=== PATIENT | female | born 1935 | race Caucasian/White ===

== ENCOUNTER 2016-11-25 08:17 | Emergency (ER) | payer MEDICARE, OTHER ==
--- NOTE | 2016-11-25 08:54 | ERPHSYRPT ---
- History of Present Illness Time Seen by Provider: 11/25/16 08:51 Source: patient Exam Limitations: no limitations Patient Subjective Stated Complaint: elevated b/p Triage Nursing Assessment: ambulated to room per self. skin w/d, color normal, resp easy. states posterior neck hurts. Physician History: 83-year-old female came to the emergency room with complaining of elevated blood pressure. Patient was recently diagnosed with hypertension and was started on medication recently. Patient does not know the name of the medication. Patient states that she was just seen 3 days ago by physician. Patient states that her blood pressure was found to be 150/94, so she came to the emergency room. She is complaining of bilateral shoulder pain but denies any substernal chest pain, nausea, vomiting or diaphoresis. Timing/Duration: today Associated Symptoms: denies symptoms Allergies/Adverse Reactions: celecoxib Allergy (Verified 11/25/16 08:35) levofloxacin [From Levaquin] Adverse Reaction (Verified 11/25/16 08:35) Home Medications: Hydrochlorothiazide 25 mg PO DAILY 07/21/14 [History] Levothyroxine Sodium [Synthroid] 75 mcg PO DAILY 07/21/14 [History] Omeprazole [Prilosec] 40 mg PO DAILY 07/21/14 [History] Simvastatin [Zocor] 20 mg PO QHS 07/21/14 [History] Antiox#10/Om3/Dha/Epa/Lut/Zeax [I-Caps with Lutein-[place] 3 Sfg] 1 each PO DAILY 11/25/16 [History] Ergocalciferol (Vitamin D2) [Vitamin D] 50,000 unit PO WEEKLY 11/25/16 [History] Magnesium Oxide [Magnesium] 400 mg PO DAILY 11/25/16 [History] Hx Tetanus, Diphtheria Vaccination/Date Given: No Hx Influenza Vaccination/Date Given: No Hx Pneumococcal Vaccination/Date Given: Yes (2015) Immunizations Up to Date: No - Review of Systems Constitutional: No Fever, No Chills Eyes: No Symptoms Ears, Nose, & Throat: No Symptoms Respiratory: No Cough, No Dyspnea Cardiac: No Chest Pain, No Edema, No Syncope Abdominal/Gastrointestinal: No Abdominal Pain, No Nausea, No Vomiting, No Diarrhea Genitourinary Symptoms: No Dysuria Musculoskeletal: No Back Pain, No Neck Pain Skin: No Rash Neurological: No Dizziness, No Focal Weakness, No Sensory Changes Psychological: No Symptoms Endocrine: No Symptoms All Other Systems: Reviewed and Negative - Past Medical History Pertinent Past Medical History: Yes Neurological History: No Pertinent History ENT History: Cataracts Cardiac History: High Cholesterol, Hypertension Respiratory History: No Pertinent History Endocrine Medical History: Hypothyroidism Musculoskeletal History: Arthritis GI Medical History: GERD History: No Pertinent History Psycho-Social History: No Pertinent History Female Reproductive Disorders: No Pertinent History - Past Surgical History Past Surgical History: Yes Neuro Surgical History: No Pertinent History Cardiac: No Pertinent History Respiratory: No Pertinent History Gastrointestinal: Cholecystectomy Genitourinary: No Pertinent History Musculoskeletal: No Pertinent History Female Surgical History: No Pertinent History - Social History Smoking Status: Never smoker Exposure to second hand smoke: No Drug Use: none Patient Lives Alone: Yes - Nursing Vital Signs Nursing Vital Signs: Initial Vital Signs Temperature 98.4 F Temperature Source Oral Pulse Rate 82 Respiratory Rate 18 Blood Pressure [Right Arm] 138/74 Blood Pressure [Right Arm] 148/94 Pain Intensity 4 - Physical Exam General Appearance: no apparent distress, alert Eye Exam: PERRL/EOMI, eyes nml inspection Ears, Nose, Throat Exam: normal ENT inspection, TMs normal, pharynx normal, moist mucous membranes Neck Exam: normal inspection, non-tender, supple, full range of motion Respiratory Exam: normal breath sounds, lungs clear, No respiratory distress Cardiovascular Exam: regular rate/rhythm, normal heart sounds, normal peripheral pulses Gastrointestinal/Abdomen Exam: soft, normal bowel sounds, No tenderness, No mass Back Exam: normal inspection, normal range of motion, No CVA tenderness, No vertebral tenderness Extremity Exam: normal inspection, normal range of motion, pelvis stable Neurologic Exam: alert, oriented x 3, cooperative, normal mood/affect, nml cerebellar function, nml station & gait, sensation nml, No motor deficits Skin Exam: normal color, warm, dry, No rash Lymphatic Exam: No adenopathy SpO2: 95 Oxygen Delivery: Room Air - Course Nursing assessment & vital signs reviewed: Yes Ordered Tests: Active Orders 24 hr Category Date Time Status EKG-ER Only STAT Care 11/25/16 08:50 Active CBC W DIFF Stat Lab 11/25/16 09:04 Completed CMP Stat Lab 11/25/16 09:04 Completed TROPONIN Stat Lab 11/25/16 09:04 Completed Lab/Rad Data: Laboratory Result Diagrams 11/25/16 09:04 11/25/16 09:04 Laboratory Results 11/25/16 11/25/16 11/25/16 Range/Units 09:04 09:04 09:04 WBC 4.5 (4.0-10.5) K/mm3 RBC 4.31 (4.1-5.4) M/mm3 Hgb 13.4 (12.0-16.0) gm/dl Hct 40.7 (35-47) % MCV 94.4 (78-100) fl MCH 31.1 (26-32) pg MCHC 32.9 (32-36) g/dl RDW 12.7 (11.5-14.0) % Plt Count 210 (150-450) K/mm3 MPV 11.5 H (6-9.5) fl Gran % 64.7 (36.0-66.0) % Lymphocytes % 23.3 L (24.0-44.0) % Monocytes % 8.7 (0.0-12.0) % Eosinophils % 2.9 (0.00-5.0) % Basophils % 0.4 (0.0-0.4) % Basophils # 0.02 (0-0.4) Sodium 145 (136-145) mEq/L Potassium 4.5 (3.5-5.1) mEq/L Chloride 106 (98-107) mEq/L Carbon Dioxide 30.3 (21-32) mEq/L Anion Gap 13.0 (5-15) MEQ/L BUN 20 (9-20) mg/dL Creatinine 1.03 (0.55-1.30) mg/dl Estimated GFR 55 ML/MIN Glucose 107 (70-110) MG/DL Calcium 9.6 (8.5-10.1) mg/dL Total Bilirubin 0.6 (0.2-1.0) mg/dL AST 19 (15-37) U/L ALT 22 (12-78) U/L Alkaline Phosphatase 50 (46-116) U/L Troponin I < 0.017 (0.000-0.056) ng/ml Serum Total Protein 7.6 (6.4-8.2) gm/dL Albumin 3.9 (3.4-5.0) g/dL - Progress Progress: improved Counseled pt/family regarding: lab results, diagnosis, need for follow-up - Departure Time of Disposition: 09:47 Departure Disposition: Home Clinical Impression: Hypertension Qualifiers: Hypertension type: essential hypertension Qualified Code(s): I10 - Essential ( primary) hypertension Condition: Good Critical Care Time: Yes Critical Care Time(excluding separately billable procedures): 30-74 minutes Referrals: JAIRO EDMONDSON MD [Primary Care Provider] - Instructions: Hypertension Additional Instructions: Please follow the instructions given to you. Please take your medication as prescribed if given. If symptoms recur or get worse, come back to the emergency room if you cannot reach your primary care physician, or call your primary care physician for an appointment. Again if your symptoms get worse, come back to the emergency room. Thanks for visiting emergency room, and let us take care of you. Prescriptions: Lisinopril 5 mg [Zestril 5 MG] 5 mg PO DAILY #30 tablet
[2016-11-25 09:12] LABS: BASOPHIL % 0.4 % (0.0-0.4); Eosinophil % 2.9 % (0.00-5.0); Granulocytes % 64.7 % (36.0-66.0); Lymphocytes % 23.3 % (24.0-44.0); Mean Cell Volume 94.4 fl (78-100); Mean Corpuscular Hemoglobin 31.1 pg (26-32); Mean Platelet Volume 11.5 fl (6-9.5); Monocytes % 8.7 % (0.0-12.0); Platelet Count 210 K/mm3 (150-450); Red Blood Count 4.31 M/mm3 (4.1-5.4); Red Cell Distribution Width 12.7 % (11.5-14.0); White Blood Count 4.5 K/mm3 (4.0-10.5)
[2016-11-25 09:30] LABS: ALBUMIN 3.9 g/dL (3.4-5.0); BILIRUBIN,TOTAL 0.6 mg/dL (0.2-1.0); Carbon Dioxide 30.3 mEq/L (21-32); Potassium 4.5 mEq/L (3.5-5.1); Total Protein 7.6 gm/dL (6.4-8.2)
[2016-11-25 10:06] VITALS: BP 132/68; PULSE 79; O2SAT 96
== END 2016-11-25 10:06 | disposition home or self-care (01) ==
LOC: ED 08:17
DX: I10 Essential (primary) hypertension (principal)
CPT/HCPCS: 36415; 80053; 84484; 85025; 93005; 99283

== ENCOUNTER 2018-10-15 11:32 | Observation (INO) | payer MEDICARE, OTHER ==
[2018-10-15] MEDS ORDERED: Sodium Chloride 0.9% 1000 ML 1,000 ML ONE (12:37)
[2018-10-15] MEDS ORDERED: Zofran 4 MG/2 ML VIAL IV PRN ×2 (13:07→19:04)
[2018-10-15] MEDS ORDERED: MORPHINE SULFATE 4 MG INJ IV PRN (13:07)
[2018-10-15] MEDS: Sodium Chloride 0.9% 1000 ML 1,000 ML IV SCH ×2 (13:11→19:33)
[2018-10-15] MEDS: Zosyn 3.375GM/100 Ml D5W 3.375 GM/100 ML IVPB IV SCH ×2 (13:13→19:39)
[2018-10-15] MEDS ORDERED: Lactated Ringers 1,000 ML IV SCH (15:30)
[2018-10-15] MEDS ORDERED: MEFOXIN 2 GM PREMIX** 2 GM/50 ML ML IV SCH (16:00)
--- NOTE | 2018-10-15 16:40 | PCM.HP ---
History of Present Illness - Chief Complaint Chief Complaint: Acute Appendicitis,Abd Pain,Diarrhea,pre op clearance History of Present Illness: is a 83 year old female who is well known to me who presented to the office on Saturday (2 days ago) with complaints of left lower abdominal pain that was intermittent and cramping in nature with associated diarrhea. She has been having some mild cramping and loose stools for the last few months but in the last week her symptoms were much more significant. she had an outpatient CT scan today that showed an enlarged appendix with no obvious stranding concerning for early appendicits. She has no cardiac history or history of significant pulmonary problems. - Review of Systems Constitutional: No Fever, No Chills Respiratory: No Cough, No Short Of Breath Cardiac: No Chest Pain, No Edema, No Syncope Abdominal/Gastrointestinal: Abdominal Pain, Diarrhea, No Nausea, No Vomiting, No Hematemesis, No Hematochezia Genitourinary Symptoms: No Symptoms Skin: No Symptoms, No Rash All Other Systems: Reviewed and Negative Medications & Allergies Home Medications: Home Medication List Levothyroxine Sodium [Synthroid] 75 mcg PO DAILY 07/21/14 [History Confirmed 10/21] Omeprazole [Prilosec] 40 mg PO DAILY 07/21/14 [History Confirmed 10/15/18] Simvastatin [Zocor] 20 mg PO QHS 07/21/14 [History Confirmed 10/15/18] hydroCHLOROthiazide [Hydrochlorothiazide] 25 mg PO DAILY 07/21/14 [History Confirmed 10/15/18] Antiox.mv No.10/Omeg3s/Lut/[place] [I-Caps with Lutein-[place] 3 Sfg] 1 each PO DAILY 11/25/16 [History Confirmed 10/15/18] Ergocalciferol (Vitamin D2) [Vitamin D] 50,000 unit PO WEEKLY 11/25/16 [History Confirmed 10/15/18] Lisinopril 5 mg [Zestril 5 MG] 5 mg PO DAILY #30 tablet 11/25/16 [Rx Confirmed 10/15/18] Allergies/Adverse Reactions: Allergies Allergy/AdvReac Type Severity Reaction Status Date / Time celecoxib Allergy Verified 10/15/18 12:50 vaccine adjuvant system, Allergy Verified 10/15/18 12:50 AS01B liposomal [From Shingrix (PF)] varicella-zoster virus Allergy Verified 10/15/18 12:50 glycoprotein E, recombinant [From Shingrix (PF)] levofloxacin [From Levaquin] AdvReac Verified 10/15/18 12:50 - Past Medical History Past Medical History: Yes Neurological History: No Pertinent History ENT History: Cataracts Cardiac History: High Cholesterol, Hypertension Respiratory History: No Pertinent History Endocrine Medical History: Hypothyroidism Musculoskelatal History: Arthritis GI Medical History: GERD History: No Pertinent History Pyscho-Social History: No Pertinent History Reproductive Disorders: No Pertinent History - Female History Are you now?: No - Past Surgical History Past Surgical History: Yes Neuro Surgical History: No Pertinent History Cardiac History: No Pertinent History Respiratory Surgery: No Pertinent History GI Surgical History: Cholecystectomy Genitourinary Surgical Hx: No Pertinent History Musculskeletal Surgical Hx: No Pertinent History Female Surgical History: No Pertinent History - Social History Smoking Status: Never smoker Exposure to second hand smoke: No Alcohol: None Drug Use: none - Physical Exam Vital Signs: Vital Signs - 24 hr Temp Pulse Resp BP Pulse Ox 10/15/18 13:53 98.6 F 77 16 134/55 95 10/15/18 12:39 98.6 F 77 16 134/55 95 General Appearance: no apparent distress, alert Eye Exam: PERRL/EOMI, eyes nml inspection Respiratory Exam: normal breath sounds, lungs clear, No respiratory distress Cardiovascular Exam: regular rate/rhythm, normal heart sounds, normal peripheral pulses Gastrointestinal/Abdomen Exam: soft, normal bowel sounds, No tenderness, No mass Extremity Exam: normal inspection, normal range of motion, pelvis stable Skin Exam: normal color, warm, dry, No rash Assessment/Plan (1) Acute appendicitis Current Visit: Yes Status: Acute Assessment & Plan: patient has been admitted, kept NPO and started on zosyn. would include neuroendocrine tumor in differential with enlarged appendix and symptoms of diarrhea and cramping pain etc. plan for surgery this evening with Dr Jones, she has an EKG with normal sinus rhythm rate 69 with no acute changes. she is fairly low risk for surgery and cleared for general anesthesia medically at this time. Code(s): K35.80 - UNSPECIFIED ACUTE APPENDICITIS (2) Diarrhea Current Visit: Yes Status: Acute Code(s): R19.7 - DIARRHEA, UNSPECIFIED (3) Abdominal pain Current Visit: Yes Status: Acute Code(s): R10.9 - UNSPECIFIED ABDOMINAL PAIN
[2018-10-15] MEDS ORDERED: Lactated Ringers 1,000 ML IV ONE (16:47)
[2018-10-15] MEDS ORDERED: Sensorcaine 0.25% 10 ML ONE (16:47)
[2018-10-15] MEDS ORDERED: DILAUDID 2 MG INJECTION ONE (18:17)
[2018-10-15] MEDS ORDERED: SUBLIMAZE 100 MCG/2 ML ONE (18:17)
[2018-10-15] MEDS ORDERED: NORCO 5/325 MG PO PRN (19:02)
[2018-10-15] MEDS: MORPHINE SULFATE 2 MG INJ IV PRN ×2 (19:24→23:19)
[2018-10-16 00:46] LABS: Appearance SLIGHTLY CLOUDY (CLEAR); Bilirubin NEGATIVE (NEGATIVE); Blood SMALL Ery/ul (0-5); Glucose NEGATIVE (NEGATIVE); Ketones NEGATIVE (NEGATIVE); Leukocyte Esterase SMALL (NEGATIVE); Nitrite NEGATIVE (NEGATIVE); Protein,Urine Dip NEGATIVE (Negative); Specific Gravity 1.009 (1.005-1.025); Urobilinogen NEGATIVE mg/dL (0-1)
[2018-10-16] MEDS: Zosyn 3.375GM/100 Ml D5W 3.375 GM/100 ML IVPB IV SCH ×3 (01:18→11:36)
[2018-10-16 05:38] LABS: Hematocrit 34.3 % (35-47); Hemoglobin 11.2 gm/dl (12.0-16.0); Mean Cell Volume 96.3 fl (78-100); Mean Corpuscular Hgb Concent. 32.7 g/dl (32-36); Mean Platelet Volume 11.5 fl (6-9.5); Platelet Count 154 K/mm3 (150-450); Red Blood Count 3.56 M/mm3 (4.1-5.4); Red Cell Distribution Width 12.5 % (11.5-14.0); White Blood Count 8.8 K/mm3 (4.0-10.5)
[2018-10-16 05:44] LABS: Mean Corpuscular Hemoglobin 31.4 pg (26-32)
[2018-10-16] MEDS: Sodium Chloride 0.9% 1000 ML 1,000 ML IV SCH (05:51)
--- NOTE | 2018-10-16 07:59 | CONS ---
CONSULT DATE: 10/15/2018 HISTORY: This 83 year-old female had some abdominal pain. She is a little bit better now. She came in. She had a distended appendix about 13 to 14 mm. There was concern whether she had early acute appendicitis. White blood cell count 4.5, hemoglobin 12.6. Liver function test unremarkable. Given her dilated appendix and wall thickening and concern of possible early appendicitis, I feel she would benefit from appendectomy. Otherwise she had on other acute findings. PAST SURGICAL HISTORY: Cholecystectomy in the past. She denied any prior abdominal surgery. She had colonoscopy three years ago. PAST MEDICAL HISTORY: MEDICATIONS: As listed per MAR. ALLERGIES: LEVAQUIN, CELEBREX, KEFLEX. FAMILY HISTORY: Negative in regards to this problem. SOCIAL HISTORY: No alcohol abuse. REVIEW OF SYSTEMS: Twelve systems reviewed. No chest pain or palpitations other systems negative or noncontributory as above and per preadmission questionnaire. PHYSICAL EXAMINATION: GENERAL: No acute distress. HEENT: Sclera nonicteric. NECK: No JVD. CHEST: Equal excursion, nonlabored breathing. CVS: Regular rate and rhythm. ABDOMEN: Soft. She had some minimal left upper quadrant tenderness. She had some mild deep right lower quadrant. No peritoneal signs. EXTREMITIES: No significant edema. NEURO: Alert, moving extremities grossly symmetrically. No gross motor deficits noted. IMPRESSION: She has some vague abdominal pain. CT showing abnormal appendix. I feel she warrants diagnostic laparoscopy, laparoscopic appendectomy possible open. Risks and benefits explained in detail but not limited to, consent obtained.
--- NOTE | 2018-10-16 08:07 | OP ---
CONSULT DATE: 10/15/2018 HISTORY: This 83 year-old female had some abdominal pain. She is a little bit better now. She came in. She had a distended appendix about 13 to 14 mm. There was concern whether she had early acute appendicitis. White blood cell count 4.5, hemoglobin 12.6. Liver function test unremarkable. Given her dilated appendix and wall thickening and concern of possible early appendicitis, I feel she would benefit from appendectomy. Otherwise she had on other acute findings. PAST SURGICAL HISTORY: Cholecystectomy in the past. She denied any prior abdominal surgery. She had colonoscopy three years ago. PAST MEDICAL HISTORY: MEDICATIONS: As listed per MAR. ALLERGIES: LEVAQUIN, CELEBREX, KEFLEX. FAMILY HISTORY: Negative in regards to this problem. SOCIAL HISTORY: No alcohol abuse. REVIEW OF SYSTEMS: Twelve systems reviewed. No chest pain or palpitations other systems negative or noncontributory as above and per preadmission questionnaire. PHYSICAL EXAMINATION: GENERAL: No acute distress. HEENT: Sclera nonicteric. NECK: No JVD. CHEST: Equal excursion, nonlabored breathing. CVS: Regular rate and rhythm. ABDOMEN: Soft. She had some minimal left upper quadrant tenderness. She had some mild deep right lower quadrant. No peritoneal signs. EXTREMITIES: No significant edema. NEURO: Alert, moving extremities grossly symmetrically. No gross motor deficits noted. IMPRESSION: She has some vague abdominal pain. CT showing abnormal appendix. I feel she warrants diagnostic laparoscopy, laparoscopic appendectomy possible open. Risks and benefits explained in detail but not limited to, consent obtained. Risks and benefits explained in detail including but not limited to bleeding or infection, risk of trocar injury or hernia, small risk of bowel, bladder or blood vessel injury, small risk of bile leak, fistula formation or abscess formation possibly requiring percutaneous or open drainage even at a later date. General risk of a anesthesia, deep venous thrombosis, pulmonary embolism, pneumonia, perioperative risk of aches, pains, bloating, constipation and/or loose stools possibly even chronic in nature, possibility of finding a normal appendix would be removed incidentally and look for other etiology that might need taken care of surgically, possible need for open procedure. She understands and agrees to the planned procedure, as well as perioperative risk of ileus or obstruction but not limited to, will proceed with laparoscopic appendectomy possible open when OR time available.
[2018-10-16] MEDS ORDERED: TYLENOL 325 MG PO PRN (08:25)
--- NOTE | 2018-10-16 08:26 | PCM.NOTE ---
Date and Time: 10/16/18823 Subjective Assessment: doing well at this time, tolerating po this morning. has ambulated in the [place]. has some mild pain Objective Exam General Appearance: no apparent distress, alert Skin Exam: normal color, warm, dry Respiratory Exam: normal breath sounds, lungs clear, No respiratory distress Cardiovascular Exam: regular rate/rhythm, normal heart sounds Gastrointestinal/Abdomen Exam: soft, normal bowel sounds, other (dressing clean , dry, intact) Extremity Exam: normal inspection, normal range of motion OBJECTIVE DATA Vital Signs: Vital Signs - 24 hr Temp Pulse Resp BP Pulse Ox 10/16/18 07:34 93 L 10/16/18 07:29 96 10/16/18 06:57 97.8 F 68 18 110/58 96 10/16/18 04:00 97.9 F 64 16 107/56 93 L 10/16/18 01:00 98.1 F 58 L 17 125/56 93 L 10/15/18 21:25 73 16 126/66 93 L 10/15/18 20:25 66 16 132/63 95 10/15/18 19:55 97.2 F 66 17 145/64 95 10/15/18 19:38 98 10/15/18 19:25 67 158/70 93 L 10/15/18 19:10 72 16 150/75 95 10/15/18 18:55 96.4 F 66 18 191/77 93 L 10/15/18 16:39 98.6 F 77 16 134/55 95 10/15/18 16:00 97.8 F 67 18 119/61 93 L 10/15/18 13:53 98.6 F 77 16 134/55 95 10/15/18 12:39 98.6 F 77 16 134/55 95 Oxygen-Last 24 hours O2 Percentage 2 Liters = 28% O2 Percentage 2 Liters = 28% O2 Percentage 2 Liters = 28% O2 Percentage 2 Liters = 28% O2 Percentage 2 Liters = 28% O2 Percentage 2 Liters = 28% O2 Percentage 2 Liters = 28% O2 Percentage 2 Liters = 28% O2 Percentage 2 Liters = 28% Pain Assessment - Last Documented Pain Intensity 6 Pain Scale Used 0-10 Pain Scale Intake and Output: Intake & Output 10/13/18 10/14/18 10/15/18 10/16/18 11:59 11:59 11:59 11:59 Intake Total 1425 Output Total 200 Balance 1225 Weight 76.4 kg Lab Results: Lab Results-Last 24 Hours 10/15/18 10/16/18 Range/Units 17:51 05:15 WBC 8.8 (4.0-10.5) K/mm3 RBC 3.56 L (4.1-5.4) M/mm3 Hgb 11.2 L (12.0-16.0) gm/dl Hct 34.3 L (35-47) % MCV 96.3 (78-100) fl MCH 31.4 (26-32) pg MCHC 32.7 (32-36) g/dl RDW 12.5 (11.5-14.0) % Plt Count 154 (150-450) K/mm3 MPV 11.5 H (6-9.5) fl Urine Color YELLOW (YELLOW) Urine Appearance SLIGHTLY CLOUDY (CLEAR) Urine pH 5.0 (5-6) Ur Specific [place] 1.009 (1.005-1.025) Urine Protein NEGATIVE (Negative) Urine Ketones NEGATIVE (NEGATIVE) Urine Blood SMALL (0-5) Biju/ul Urine Nitrite NEGATIVE (NEGATIVE) Urine Bilirubin NEGATIVE (NEGATIVE) Urine Urobilinogen NEGATIVE (0-1) mg/dL Ur Leukocyte Esterase SMALL (NEGATIVE) Urine WBC (Auto) 11-15 (0-5) /HPF Urine RBC (Auto) 3-5 (0-2) /HPF U Epithel Cells (Auto) RARE (FEW) /HPF Urine Bacteria (Auto) RARE (NEGATIVE) /HPF Urine Mucus (Auto) SLIGHT (NEGATIVE) /HPF Urine Glucose NEGATIVE (NEGATIVE) mg/dL Assessment/Plan (1) Acute appendicitis Current Visit: Yes Status: Acute Assessment & Plan: on zosyn, doing well postoperative. tolerating po and ambulating, home when ok with surgery Code(s): K35.80 - UNSPECIFIED ACUTE APPENDICITIS (2) Diarrhea Current Visit: Yes Status: Acute Code(s): R19.7 - DIARRHEA, UNSPECIFIED (3) Abdominal pain Current Visit: Yes Status: Acute Code(s): R10.9 - UNSPECIFIED ABDOMINAL PAIN
--- NOTE | 2018-10-16 08:27 | OP ---
SURGERY DATE/TIME: 10/15/2018 0206 PREOPERATIVE DIAGNOSES: 1) Abnormal appendix on CT scan with concern for acute appendicitis. 2) History of vague abdominal pain. POSTOPERATIVE DIAGNOSES: 1) Definitely abnormal thickened appendix with reaction at the base, final path pending. 2) Abdominal adhesions. PROCEDURES: 1) Diagnostic laparoscopy, laparoscopic lysis of right lower quadrant adhesions. 2) Laparoscopic appendectomy. SURGEON: Dr. Gurvinder Jones. COURIER: Nati Rdz, Medical Student III. ANESTHESIA: General. ESTIMATED BLOOD LOSS: Minimal. INDICATIONS: As noted above. Risks and benefits explained in detail but not limited to, consent obtained. DESCRIPTION OF PROCEDURE AND FINDINGS: The patient taken to the operating room. General anesthesia was induced. Abdomen prepped and draped in usual sterile fashion. After official time out and no disagreement with the planned procedure, a transverse incision made supraumbilical area. Fascia grasped and pulled upwards. Veress needle inserted and tested with saline. Pneumoperitoneum accomplished insufflating from opening pressure of 0 to 15. A 5 mm bladeless port and camera were inserted without difficulty followed by 12 mm right mid abdomen port. There was evidence of some omental adhesions sticking to the lower abdomen and right lower quadrant. It was necessary to take these down so the appendiceal area could be visualized, this was accomplished with a combination of some sharp dissection and LigaSure device. Again staying on these filmy adhesions directly on the abdominal wall well away from any viscera. Good hemostasis noted. Before I had access for better visualization of right lower quadrant, a 5 mm port was placed in lower midline. The appendix was definitely abnormal and it was thickened. It had reaction at its base. Whether this had been appendicitis in the past acute on chronic or whether there is some sort of small tumor, it was felt it definitely warranted appendectomy. It was carefully mobilized upwards. EndoGIA stapler fired across the base of the appendix to the cecum. Sequential reloads fired across the mesoappendix. There had been scant ooze at staple line controlled with pinpoint miniscule brief bursts of cautery. Good hemostasis was noted. The appendix placed in Pleatman sac and pulled out the 12 mm port and passed off. The port is replaced. Copious amount of irrigation accomplished in right lower quadrant. She had some ooze in the staple line earlier. It was felt that she was not a candidate for immediate Lovenox use secondary to bleeding risk but will continue on SCD's postoperatively for deep venous thrombosis prophylaxis, otherwise early ambulation and increase activity. Copious amount of irrigation accomplished in the right lower quadrant irrigating until clear. It was felt there was no benefit from drain placement. Staple line is intact. No current active bleeding or leakage from the staple line. Fascial defect 12 mm closed with puncture closure device with #1 Vicryl. Pneumoperitoneum decompressed. The wound is irrigated out. Skin incision closed with 4-0 Vicryl. Steri-Strips and sterile dressing applied. 0.25% Marcaine local injected along the skin incision fascial defects. The patient tolerated the procedure well. There were no immediate complications. Findings discussed with the family out in the waiting area. I will check a blood count tomorrow and possibly go home in a day or two.
[2018-10-16] MEDS ORDERED: hydroDIURIL 25 MG PO SCH (10:00)
[2018-10-16] MEDS ORDERED: Protonix 40MG Tablet PO SCH (10:00)
[2018-10-16] MEDS ORDERED: SYNTHROID 75 MCG PO SCH (10:00)
[2018-10-16] MEDS ORDERED: Zestril 5 MG PO SCH (10:00)
[2018-10-16] MEDS ORDERED: NON-FORMULARY ITEM (Omeprazole [Prilosec] 40 MG) PO SCH (10:00)
[2018-10-16 11:11] VITALS: BP 102/60; PULSE 59; O2SAT 95
--- NOTE | 2018-10-16 12:53 | PCM.DS ---
Discharge Summary Date of Admission: 10/15/18 12:14 Admitting Physician: JAIRO EDMONDSON Consults: Consults on Case 10/15/18 12:39 Consult Surgery ROUTINE Primary Care Provider: JAIRO EDMONDSON Allergies Allergies celecoxib Allergy (Verified 10/15/18 12:50) rash vaccine adjuvant system, AS01B liposomal [From Shingrix (PF)] Allergy (Verified 10/15/18 12:50) varicella-zoster virus glycoprotein E, recombinant [From Shingrix (PF)] Allergy (Verified 10/15/18 12:50) levofloxacin [From Levaquin] Adverse Reaction (Verified 10/15/18 12:50) sore joints rash Hospital Summary - Hospital Course Hospital Course: patient was admitted after having outpatient CT scan on 10/15 that showed acute appendicitis. she is doing well postoperatively, ambulatory, tolerating po intake and pain is controlled. - Vitals & Intake/Output Vital Signs: Vital Signs Temperature 97.6 F 10/16/18 11:10 Pulse Rate 59 L 10/16/18 11:10 Respiratory Rate 20 10/16/18 11:10 Blood Pressure 102/60 10/16/18 11:10 O2 Sat by Pulse Oximetry 95 10/16/18 11:10 Oxygen-Last Documented O2 Percentage 2 Liters = 28% Intake & Output: Intake & Output 10/14/18 10/15/18 10/16/18 10/17/18 11:59 11:59 11:59 11:59 Intake Total 1785 Output Total 400 Balance 1385 Weight 76.4 kg - Lab Result Diagrams: 10/16/18 05:15 Lab Results-Last 24 Hrs: Lab Results-Last 24 Hours 10/15/18 10/16/18 Range/Units 17:51 05:15 WBC 8.8 (4.0-10.5) K/mm3 RBC 3.56 L (4.1-5.4) M/mm3 Hgb 11.2 L (12.0-16.0) gm/dl Hct 34.3 L (35-47) % MCV 96.3 (78-100) fl MCH 31.4 (26-32) pg MCHC 32.7 (32-36) g/dl RDW 12.5 (11.5-14.0) % Plt Count 154 (150-450) K/mm3 MPV 11.5 H (6-9.5) fl Urine Color YELLOW (YELLOW) Urine Appearance SLIGHTLY CLOUDY (CLEAR) Urine pH 5.0 (5-6) Ur Specific [place] 1.009 (1.005-1.025) Urine Protein NEGATIVE (Negative) Urine Ketones NEGATIVE (NEGATIVE) Urine Blood SMALL (0-5) Biju/ul Urine Nitrite NEGATIVE (NEGATIVE) Urine Bilirubin NEGATIVE (NEGATIVE) Urine Urobilinogen NEGATIVE (0-1) mg/dL Ur Leukocyte Esterase SMALL (NEGATIVE) Urine WBC (Auto) 11-15 (0-5) /HPF Urine RBC (Auto) 3-5 (0-2) /HPF U Epithel Cells (Auto) RARE (FEW) /HPF Urine Bacteria (Auto) RARE (NEGATIVE) /HPF Urine Mucus (Auto) SLIGHT (NEGATIVE) /HPF Urine Glucose NEGATIVE (NEGATIVE) mg/dL - Procedures and Test Procedures and Tests throughout Hospitalization: Therapy Orders & Screens 10/15/18 13:15 EKG ROUTINE Comment: Diagnosis: Acute Appendicitis,Abd Pain,Diarrhea,pre op clearance 10/15/18 20:41 Oxygen NASAL CANNULA 2 lpm Comment: Diagnosis: Acute Appendicitis,Abd Pain,Diarrhea,pre op clearance Discharge Exam General Appearance: no apparent distress, alert Skin Exam: normal color, warm, dry Respiratory Exam: normal breath sounds, lungs clear, No respiratory distress Cardiovascular Exam: regular rate/rhythm, normal heart sounds Gastrointestinal/Abdomen Exam: soft, other (dressing clean/dry/intact), No tenderness, No distention Extremity Exam: normal inspection, normal range of motion Final Diagnosis/Problem List - Final Discharge Diagnosis/Problem (1) Acute appendicitis Current Visit: Yes Status: Acute (2) Diarrhea Current Visit: Yes Status: Acute (3) Abdominal pain Current Visit: Yes Status: Acute - Discharge Disposition: Home, Self-Care Condition: Stable Prescriptions: Continue Simvastatin [Zocor] 20 mg PO QHS Lisinopril 5 mg [Zestril 5 MG] 5 mg PO DAILY #30 tablet No Action Levothyroxine Sodium [Synthroid] 75 mcg PO DAILY Omeprazole [Prilosec] 40 mg PO DAILY hydroCHLOROthiazide [Hydrochlorothiazide] 25 mg PO DAILY Antiox.mv No.10/Omeg3s/Lut/Paxton [I-Caps with Lutein-[place] 3 Sfg] 1 each PO DAILY Ergocalciferol (Vitamin D2) [Vitamin D] 50,000 unit PO WEEKLY Instructions: Appendicitis, Adult (DC), Appendectomy, Laparoscopic Surgery (DC) Additional Instructions: take augmentin as directed by Dr Tomlin and use hydrocodone prn for pain Follow up with: JAIRO EDMONDSON MD [Primary Care Provider] - 10/22/18 1:30 pm VIKAS TOMLIN [COURTESY STAFF] - 10/20/18 8:20 am Forms: Discharge Instructions
== END 2018-10-16 14:06 | disposition home or self-care (01) ==
LOC: ICU 12:14 → MED SURG 14:00
PROVIDERS: ADMIT Family Medicine; ATTEND Family Medicine
DX: K35.80 Unspecified acute appendicitis (principal); K66.0 Peritoneal adhesions (postprocedural) (postinfection); R19.7 Diarrhea, unspecified; R10.9 Unspecified abdominal pain; I10 Essential (primary) hypertension; E78.00 Pure hypercholesterolemia, unspecified; E03.9 Hypothyroidism, unspecified; M19.90 Unspecified osteoarthritis, unspecified site; K21.9 Gastro-esophageal reflux disease without esophagitis
CPT/HCPCS: 00840; 36415; 44970; 49320; 49329; 74176; 80053; 80061; 81001; 82784; 83516; 83721; 84439; 84443; 85025; 85027; 86255; 87086; 93005; 94760; 99140; G0378; J0694; J1170; J2270; J2543; J3010; A9270-GY

== ENCOUNTER 2018-12-22 09:25 | Day surgery (SDC) | payer MEDICARE, OTHER ==
--- NOTE | 2018-12-22 07:52 | HP ---
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 PAST MEDICAL HISTORY: Reflux, hypercholesterolemia, hypothyroidism. PAST SURGICAL HISTORY: Cholecystectomy as well as colonoscopy in the past. MEDICATIONS: Hydrochlorothiazide, Zocor, Synthroid, Gabapentin, lisinopril, vitamins, meclizine. ALLERGIES: LEVAQUIN, CELEBREX, KEFLEX, SHINGLES VACCINE. SOCIAL HISTORY: No smoking or alcohol abuse. REVIEW OF SYSTEMS: Twelve systems reviewed. No chest pain or palpitations other systems negative or noncontributory as above and per preadmission questionnaire. PHYSICAL EXAMINATION: GENERAL: No acute distress. HEENT: Sclerae nonicteric. NECK: No JVD. CHEST: Equal excursion, nonlabored breathing. CVS: Regular rate and rhythm. ABDOMEN: Soft. No peritoneal signs. EXTREMITIES: No significant edema. NEURO: Alert, oriented, moving extremities symmetrically. No gross motor deficits noted. RECTAL: Deferred timed to endoscopy exam. 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 She was shown the risk sheet, explained the procedure in detail but not limited to bleeding, infection, risk of bowel injury or perforation possibly requiring open procedure, risk of missed or nondiagnosis or incomplete exam possibly requiring barium enema, other studies or procedures, general risk of anesthesia or sedation but not limited to. She understands and agrees to the planned procedure and will proceed with outpatient colonoscopy under MAC anesthesia.
[2018-12-22] MEDS ORDERED: DIPRIVAN 200 MG/20 ML IV ONE (09:26)
[2018-12-22] MEDS ORDERED: Lactated Ringers 1,000 ML IV SCH (10:00)
[2018-12-22] MEDS ORDERED: Lactated Ringers 1,000 ML IV ONE (11:33)
[2018-12-22 12:56] VITALS: BP 148/78; PULSE 68; O2SAT 95
--- NOTE | 2018-12-22 14:52 | OP ---
SURGERY DATE/TIME: 12/22/2018 1152 PREOPERATIVE DIAGNOSIS: History of low grade mucinous neoplasm of appendix, need for follow up colonoscopy. POSTOPERATIVE DIAGNOSES: 1) Small raised lesion versus hyperplastic lesion transverse colon. 2) Diverticulosis. 3) Small internal and external hemorrhoids. 4) Patchy area of inflammation versus prep irritation rectum. 5) Small internal and external hemorrhoids. 6) Fair bowel prep. PROCEDURES: 1) Colonoscopy to terminal ileum. 2) Retrograde ileoscopy. 3) Hot biopsy removal of small raised lesion versus hyperplastic lesion transverse colon. 4) Cold biopsy patchy area of inflammation versus prep irritation rectum. SURGEON: Dr. Gurvinder Jones. ROLLING MILL OPERATOR: Letty Jones, Medical Student III. ANESTHESIA: MAC. ESTIMATED BLOOD LOSS: Minimal. INDICATIONS: As noted above. Risks and benefits explained in detail but not limited to and consent obtained. DESCRIPTION OF PROCEDURE AND FINDINGS: The patient is taken to the endoscopy room. MAC anesthesia introduced. After official time out and no disagreement with planned procedure, digital rectal exam did not reveal any rectal masses. She did have some small internal and external hemorrhoids. Video colonoscope inserted and passed up through the sigmoid, descending and transverse colon. With external pressure the scope was able to be passed around the ascending colon to the cecum, inside appendiceal orifice where she had prior appendectomy. No signs of any lesions at this point. The scope was able to be passed up the terminal ileum. Retrograde ileoscopy performed which was grossly unremarkable. No signs of any polyps or nodules. The scope was withdrawn. Prep overall was fair to adequate with some semi-solid and some solid stool balls and other areas were plate cleaner. Suction irrigated as well as possible but slightly limited the exam for small lesions. The scope is slowly and carefully withdrawn. There were no signs of any large polyps, masses or obstructing lesions. She did have some moderately large diverticulosis in the left colon in particular otherwise there was a small raised lesion in the transverse colon that was removed with hot biopsy forceps with brief bursts of cautery. Good hemostasis noted. No signs of any other polyps, masses or other mucosal lesions back to the rectum where she had some patchy inflammation versus prep irritation. Random cold biopsies were taken. She did have some small internal and external hemorrhoids. The scope is withdrawn. The patient tolerated the procedure well. Findings discussed with her friend out in the waiting area. There were no immediate complications. I will see her back in the office to go over the results.
== END 2018-12-22 13:15 | disposition home or self-care (01) ==
LOC: SDC 09:25
PROVIDERS: ATTEND Surgery
DX: K63.9 Disease of intestine, unspecified (principal); K57.90 Diverticulosis of intestine, part unspecified, without perforation or abscess without bleeding; K64.4 Residual hemorrhoidal skin tags; K64.8 Other hemorrhoids; K62.89 Other specified diseases of anus and rectum
CPT/HCPCS: 88305; 99100; J2704

== ENCOUNTER 2021-05-29 08:27 | Day surgery (SDC) | payer MEDICARE, OTHER ==
--- NOTE | 2021-05-29 08:06 | HP ---
AMENDED REPORT: DATE OF SURGERY: 05/29/2021 HISTORY OF PRESENT ILLNESS: She had colonoscopy in the past. Prior history of low grade mucinous neoplasm. She is in need of follow up colonoscopy for further evaluation. She had some polyps in the past as well. PAST MEDICAL HISTORY: Low grade mucinous neoplasm. Hypertension, hyperlipidemia, hypothyroidism, PAST SURGICAL HISTORY: Cholecystectomy. Colonoscopy. Appendectomy. MEDICATIONS: Hydrochlorothiazide, Zocor, omeprazole, Synthroid, gabapentin, lisinopril, vitamin D, vitamin B12, meclizine, Probiotic, Sammie. ALLERGIES: CELEBREX. KEFLEX. LEVAQUIN. SHINGLES SHOT. FAMILY HISTORY: Negative for cancer. SOCIAL HISTORY: No alcohol abuse. REVIEW OF SYSTEMS: Fourteen systems reviewed. No chest pain or palpitations. Other systems negative or noncontributory as above and per preadmission questionnaire. PHYSICAL EXAMINATION: GENERAL: No acute distress. HEENT: Sclerae nonicteric. NECK: No JVD. CHEST: Equal excursion, nonlabored breathing. CVS: Regular rate and rhythm. ABDOMEN: Soft. No peritoneal signs. EXTREMITIES: No significant edema. NEURO: Alert, oriented, moving extremities symmetrically. RECTAL: Deferred timed to endoscopy exam. PSYCH: Appropriate mood and affect. 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 She is in need of follow up screening colonoscopy. Risks and benefits explained in detail including but not limited to bleeding or infection, risk of bowel injury or perforation possibly requiring open procedure, risk of missed or nondiagnosis or incomplete exam possibly requiring barium enema, other studies or procedures, general risk of anesthesia or sedation, risk of bowel prep, but not limited to, consent obtained. Will proceed with outpatient follow up colonoscopy.
[2021-05-29] MEDS ORDERED: Lactated Ringers 1,000 ML IV SCH (08:30)
[2021-05-29] MEDS ORDERED: Lactated Ringers 1,000 ML IV ONE (08:45)
[2021-05-29] MEDS ORDERED: DIPRIVAN 200 MG/20 ML IV ONE (09:59)
[2021-05-29 11:25] VITALS: BP 157/75; PULSE 76; O2SAT 98
--- NOTE | 2021-05-30 11:15 | OP ---
SURGERY DATE/TIME: 05/29/2021 1025 PREOPERATIVE DIAGNOSES: 1) Need for follow up screening colonoscopy. 2) ASA Class III. POSTOPERATIVE DIAGNOSES: 1) Two small diverticula. 2) Small polyp cecum and transverse colon. 3) Fair bowel prep. 4) Mild diverticulosis. PROCEDURES: 1) Colonoscopy to terminal ileum. 2) Ileoscopy. 3) Hot biopsy polypectomy small cecal polyp. 4) Hot biopsy polypectomy small early polyp versus hyperplastic lesion in the transverse colon. SURGEON: Dr. Gurvinder Jones. ANESTHESIA: MAC. ESTIMATED BLOOD LOSS: Minimal. INDICATIONS: As noted above. Risks and benefits explained in detail but not limited to and consent obtained. DESCRIPTION OF PROCEDURE AND FINDINGS: The patient is taken to the endoscopy room. MAC anesthesia introduced. After official time out and no disagreement with planned procedure, digital rectal exam did not reveal any rectal masses. Video colonoscope inserted and passed up through the slightly tortuous sigmoid, descending, transverse and ascending colon around to the cecum. Appendiceal orifice and valve well visualized, photo documented. There was a small polyp, a picture had been taken, but somehow it did not save. A 2 to 2.5 mm polyp removed with hot biopsy forceps with brief bursts of cautery. This had adenomatous appearance. Good hemostasis noted. The appendiceal orifice area looked fine. No evidence of any mucinous recurrence, the patient had history of that in the past. The scope is slowly and carefully withdrawn over the next 9 minutes. Prep was fair. ASA Class III. There was a small early polyp versus hyperplastic lesion in the transverse colon removed with hot biopsy forceps with brief bursts of cautery. Good hemostasis noted. The scope was then carefully pulled through the left colon. It had some mild diverticulosis and some minimal internal hemorrhoids. There were no signs of any large polyps, masses or obstructing lesions. The scope is withdrawn. Findings discussed with the family out in the waiting area. I will see her back in the office next week. There is no evidence of any mucinous recurrence.
== END 2021-05-29 11:35 | disposition home or self-care (01) ==
LOC: SDC 08:27
PROVIDERS: ATTEND Surgery
DX: Z12.11 Encounter for screening for malignant neoplasm of colon (principal); K57.30 Diverticulosis of large intestine without perforation or abscess without bleeding; D12.0 Benign neoplasm of cecum; D12.3 Benign neoplasm of transverse colon; Z79.899 Other long term (current) drug therapy
CPT/HCPCS: 99100; J2704

== ENCOUNTER 2021-12-31 10:13 | Emergency (ER) | payer MEDICARE, OTHER ==
--- NOTE | 2021-12-31 10:46 | ERPHSYRPT ---
- History of Present Illness Time Seen by Provider: 12/31/21 10:44 Source: patient Exam Limitations: no limitations Patient Subjective Stated Complaint: Pt states that she has been coughing since last Saturday and went to [facility] on Saturday and was given a steroid injec tion and some tessalon pearles, called [facility] office on Saturday but they stated that it hadn't been long enough for the medicine to work yet, pt states that she had more difficulty with her breathing today and and more tightness in her chest with her cough Triage Nursing Assessment: Pt was brought to the ER by her daughter, hypertensive, rates pain in her chest from coughing as 4/10, coarse lung sounds, denies fever, states only symptom she has had has been a cough, pulses normal, skin n/w/d Physician History: she has been coughing since last Saturday and went to [facility] on Saturday and was given a steroid injection and some tessalon pearles, called [facility] office on Saturday but they stated that it hadn't been long enough for the medicine to work yet, pt states that she had more difficulty with her breathing today and and more tightness in her chest with her cough Timing/Duration: day(s) (7 days) Activities at Onset: none Severity of Dyspnea-Max: mild Severity of Dyspnea-Current: mild Possible Cause: no prior episodes Modifying Factors: Improves With: deep breath, rest Associated Symptoms: cough Allergies/Adverse Reactions: celecoxib Allergy (Verified 12/31/21 10:39) rash vaccine adjuvant system, AS01B liposomal [From Shingrix (PF)] Allergy (Verified 12/31/21 10:39) varicella-zoster virus glycoprotein E, recombinant [From Shingrix (PF)] Allergy (Verified 12/31/21 10:39) levofloxacin [From Levaquin] Adverse Reaction (Verified 12/31/21 10:39) sore joints rash Home Medications: Levothyroxine Sodium [Synthroid] 75 mcg PO DAILY 07/21/14 [History] Omeprazole [Prilosec] 20 mg PO DAILY 07/21/14 [History] Simvastatin [Zocor] 20 mg PO QHS 07/21/14 [History] hydroCHLOROthiazide [Hydrochlorothiazide] 25 mg PO DAILY 07/21/14 [History] Ergocalciferol (Vitamin D2) [Vitamin D] 50,000 unit PO WEEKLY 11/25/16 [History] Cyanocobalamin (Vitamin B-12) [Vitamin B12] 1,000 mcg PO DAILY 05/23/21 [History] Fexofenadine HCl [Sammie] 180 mg PO DAILY PRN PRN 05/23/21 [History] Gabapentin 300 mg [Neurontin 300 mg] 300 mg PO DAILY 05/23/21 [History] L.acidoph,Paracasei, B.lactis [Probiotic] 1 each PO DAILY 05/23/21 [History] Meclizine HCl 12.5 mg PO DAILY PRN PRN 05/23/21 [History] Hx Tetanus, Diphtheria Vaccination/Date Given: No Hx Influenza Vaccination/Date Given: No Hx Pneumococcal Vaccination/Date Given: Yes (2015) Travel Risk - International Travel Have you traveled outside of the country in past 3 weeks: No - Coronavirus Screening Are you exhibiting any of the following symptoms?: Yes Symptoms: Cough: New Onset Close contact with a COVID-19 positive Pt in past 14-21 Days: No - Vaccine Status Have you recieved a Covid-19 vaccination: Yes [employer]: [employer] - Vaccination Dates Date of 2cond Vaccination (if applicable): 01/2021 - Review of Systems Constitutional: No Fever, No Chills Eyes: No Symptoms Ears, Nose, & Throat: No Symptoms Respiratory: Cough, Dyspnea, Dyspnea on Exertion (NIELSEN), Wheezing Cardiac: No Chest Pain, No Edema, No Syncope Abdominal/Gastrointestinal: No Abdominal Pain, No Nausea, No Vomiting, No Diarrhea Genitourinary Symptoms: No Dysuria Musculoskeletal: No Back Pain, No Neck Pain Skin: No Rash Neurological: No Dizziness, No Focal Weakness, No Sensory Changes Psychological: No Symptoms Endocrine: No Symptoms All Other Systems: Reviewed and Negative - Past Medical History Pertinent Past Medical History: Yes Neurological History: No Pertinent History ENT History: Cataracts Cardiac History: High Cholesterol, Hypertension Respiratory History: No Pertinent History Endocrine Medical History: Hypothyroidism Musculoskeletal History: Arthritis GI Medical History: GERD History: No Pertinent History Psycho-Social History: No Pertinent History Female Reproductive Disorders: No Pertinent History Other Medical History: vertigo - Past Surgical History Past Surgical History: Yes Neuro Surgical History: No Pertinent History Cardiac: No Pertinent History Respiratory: No Pertinent History Gastrointestinal: Appendectomy, Cholecystectomy Genitourinary: No Pertinent History Musculoskeletal: No Pertinent History Female Surgical History: No Pertinent History 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 - Social History Smoking Status: Never smoker Exposure to second hand smoke: No Drug Use: none Patient Lives Alone: Yes - Nursing Vital Signs Nursing Vital Signs: Initial Vital Signs Temperature 97.8 F 12/31/21 10:15 Pulse Rate 83 12/31/21 10:15 Respiratory Rate 13 12/31/21 10:15 Blood Pressure 175/80 12/31/21 10:15 O2 Sat by Pulse Oximetry 95 12/31/21 10:15 Pain Scale Pain Intensity 0 - Physical Exam General Appearance: no apparent distress, alert Eye Exam: PERRL/EOMI Neck Exam: normal inspection, supple Respiratory Exam: diminished breath sounds, crackles/rales, rhonchi, wheezing Cardiovascular/Chest Exam: normal heart sounds, regular rate/rhythm Abdominal/Gastrointestinal Exam: soft, No tenderness, No distention, No mass Extremity Exam: non-tender, normal range of motion, normal inspection, no calf tenderness, no pedal edema Neurologic Exam: alert, oriented x 3, cooperative, code number stamper II-XII nml as tested, sensation nml, No motor deficits Skin Exam: normal color, warm, No dry SpO2 Interpretation: normal SpO2: 96 O2 Delivery: Room Air - Course Nursing assessment & vital signs reviewed: Yes EKG Interpreted by Me: Sinus Rhythm - Radiology Exams Chest X-ray Interpretation: Reviewed by me, Negative, No Pneumonia Ordered Tests: Active Orders 24 hr Category Date Time Status Meeting Facilitator STAT Care 12/31/21 10:28 Active EKG-ER Only STAT Care 12/31/21 10:27 Active IV Insertion STAT Care 12/31/21 10:27 Active Oxygen-ED Only Nasal Cannula 2 lpm Care 12/31/21 10:27 Active CHEST 2 VIEWS (PA AND LAT) Stat Exams 12/31/21 10:27 Taken CBC W DIFF Stat Lab 12/31/21 10:30 Completed CMP Stat Lab 12/31/21 10:30 Completed D-DIMER QUANTITATIVE Stat Lab 12/31/21 10:30 Completed NT PRO BNP Stat Lab 12/31/21 10:30 Completed TROPONIN Q3H Lab 12/31/21 10:30 Completed TROPONIN Q3H Lab 12/31/21 13:30 Ordered TROPONIN Q3H Lab 12/31/21 16:30 Ordered TROPONIN Q3H Lab 12/31/21 19:30 Ordered TROPONIN Q3H Lab 12/31/21 22:30 Ordered Medication Summary Generic Name Dose Route Start Last Admin Trade Name Cheikh PRN Reason Stop Dose Admin Ceftriaxone Sodium 1,000 mg 12/31/21 11:27 Ceftriaxone Sodium 1000 Mg Inj Vial IM 12/31/21 11:28 STAT ONE Discontinued Medications Generic Name Dose Route Start Last Admin Trade Name Cheikh PRN Reason Stop Dose Admin Budesonide 0.5 mg 12/31/21 11:25 Budesonide 0.5 Mg/2 Ml Ampul.Neb. IH 12/31/21 11:26 ONCE ONE Lab/Rad Data: Laboratory Result Diagrams 12/31/21 10:30 12/31/21 10:30 Laboratory Results 12/31/21 12/31/21 12/31/21 Range/Units 10:30 10:30 10:30 WBC (4.0-10.5) K/mm3 RBC (4.1-5.4) M/mm3 Hgb (12.0-16.0) gm/dl Hct (35-47) % MCV (78-100) fl MCH (26-32) pg MCHC (32-36) g/dl RDW (11.5-14.0) % Plt Count (150-450) K/mm3 MPV (7.5-11.0) fl Gran % (36.0-66.0) % Eos # (Auto) (0-0.5) Absolute Lymphs (auto) (1.0-4.6) Absolute Monos (auto) (0.0-1.3) Lymphocytes % (24.0-44.0) % Monocytes % (0.0-12.0) % Eosinophils % (0.00-5.0) % Basophils % (0.0-0.4) % Absolute Granulocytes (1.4-6.9) Basophils # (0-0.4) D-Dimer 679 H* (215-500) ng/mL Sodium 140 (137-145) mmol/L Potassium 3.7 (3.5-5.1) mmol/L Chloride 105 (98-107) mmol/L Carbon Dioxide 22 (22-30) mmol/L Anion Gap 15.9 H (5-15) MEQ/L BUN 22 H (7-17) mg/dL Creatinine 1.16 H (0.52-1.04) mg/dL Estimated GFR 47.2 ML/MIN Glucose 117 H (74-106) mg/dL Calcium 9.7 (8.4-10.2) mg/dL Total Bilirubin 0.50 (0.2-1.3) mg/dL AST 20 (14-36) U/L ALT 15 (0-35) U/L Alkaline Phosphatase 51 (38-126) U/L Troponin I < 0.012 (0.000-0.034) ng/mL NT-Pro-B Natriuret Pep 75.0 (0-1800) pg/mL Serum Total Protein 7.9 (6.3-8.2) g/dL Albumin 4.3 (3.5-5.0) g/dL 12/31/21 Range/Units 10:30 WBC 6.1 (4.0-10.5) K/mm3 RBC 4.04 L (4.1-5.4) M/mm3 Hgb 12.9 (12.0-16.0) gm/dl Hct 38.8 (35-47) % MCV 96.0 (78-100) fl MCH 31.9 (26-32) pg MCHC 33.2 (32-36) g/dl RDW 11.8 (11.5-14.0) % Plt Count 226 (150-450) K/mm3 MPV 11.3 H (7.5-11.0) fl Gran % 57.4 (36.0-66.0) % Eos # (Auto) 0.19 (0-0.5) Absolute Lymphs (auto) 1.91 (1.0-4.6) Absolute Monos (auto) 0.47 (0.0-1.3) Lymphocytes % 31.5 (24.0-44.0) % Monocytes % 7.7 (0.0-12.0) % Eosinophils % 3.1 (0.00-5.0) % Basophils % 0.3 (0.0-0.4) % Absolute Granulocytes 3.48 (1.4-6.9) Basophils # 0.02 (0-0.4) D-Dimer (215-500) ng/mL Sodium (137-145) mmol/L Potassium (3.5-5.1) mmol/L Chloride (98-107) mmol/L Carbon Dioxide (22-30) mmol/L Anion Gap (5-15) MEQ/L BUN (7-17) mg/dL Creatinine (0.52-1.04) mg/dL Estimated GFR ML/MIN Glucose (74-106) mg/dL Calcium (8.4-10.2) mg/dL Total Bilirubin (0.2-1.3) mg/dL AST (14-36) U/L ALT (0-35) U/L Alkaline Phosphatase (38-126) U/L Troponin I (0.000-0.034) ng/mL NT-Pro-B Natriuret Pep (0-1800) pg/mL Serum Total Protein (6.3-8.2) g/dL Albumin (3.5-5.0) g/dL - Progress Progress: improved Air Movement: good Blood Culture(s) Obtained: No Antibiotics given: Yes Counseled pt/family regarding: lab results, diagnosis, need for follow-up, rad results - Departure Departure Disposition: Home Clinical Impression: Bronchitis, Cough due to bronchospasm Condition: Stable Critical Care Time: No Referrals: JAIRO EDMONDSON MD [Primary Care Provider] - Follow up/PCP as directed Instructions: Cough, Adult (DC), Acute Bronchitis Additional Instructions: Discharge/Care Plan THOMAS MIGUEL was seen on 12/31/21 in the Emergency Room. The patient was counseled regarding Diagnosis,Lab results, Imaging studies, need for follow up and when to return to the Emergency Room. Prescriptions given: Discharge Note I have spoken with the patient and/or caregivers. I have explained the patient's condition, diagnosis and treatment plan based on the information available to me at this time. I have answered the patient's and/or caregiver's questions and addressed any concerns. The patient and/or caregivers have as good understanding of the patient's diagnosis, condition and treatment plan as can be expected at this point. The vital signs have been stable. The patient's condition is stable and appropriate for discharge from the emergency department. The patient will pursue further outpatient evaluation with the primary care physician or other designated or consulting physician as outlined in the discharge instructions. The patient and/or caregivers are agreeable to this plan of care and follow-up instructions have been explained in detail. The patient and/or caregivers have received these instruction. The patient/and or caregivers are aware that any significant change in condition or worsening of symptoms should prompt an immediate return to this or the closest emergency department or call 911. THOMAS MIGUEL was seen on 12/31/21 n the Emergency Room. At that time you were treated for an emergent condition, during your visit Laboratory, Radiology and/or other procedures may have been ordered. It is very important that you follow-up with your Primary Care Physician JAIRO EDMONDSON within the next 24-48 hours to review your Emergency Room visit and the final results of testing that was ordered. Some test results such as Urine Cultures, Blood Cultures, and other cultures if ordered will not be finalized for 24-48 hours. If you do not have a Primary Care Provider please call the medical records department at [phone] ext [phone] to obtain a copy of your results or you may sign into our patient portal to obtain these results by visiting us @ [email or web address] and completing the following steps: 1. Click on the Patient Portal link 2. Click the Patient Self Enrollment Link to complete the enrollment form and entering your 3. Once the enrollment form is completed you will receive an email with a temporary ID and password at the email address you provided. 4. Next choose a user name and password. Your user name must be at least 4 characters long and your password must be at least 4 characters long. 5. Choose a security question from the list and provide your answer to the question. If you already have signed into the Health Portal you may access your Health Care Information 27/05 by the following steps: 1. Login to our website @ [email or web address] 2. Enter your original user name and password. FAQS The [facility] Health Portal is an online tool that contains your Lab Results, Radiology Reports, Visit History, Discharge Instructions and Health Summary Lab and Radiology Results will not be available for 72 hours on the portal. The Portal is a secure site, passwords are encryted and URLs are re-written so they cannot be copied and pasted. You and authorized family members are the only ones who can access your Portal. Also there is a timeout feature that protects your information if you leave the Portal page open. If you have technical difficulty please use the Contact Us link on the page this will allow you to submit any questions you have regarding the Portal or you may contact the Medical Record Department at [phone] ext [phone]. Prescriptions: Amoxicillin 500 mg PO TID #21 tablet Codeine Phosphate/Guaifenesin [Guaifenesin AC Cough Syrup] 5 ml PO QID 5 Days #100 ml Methylprednisolone Packet [Medrol Dosepack] 4 mg PO UD #30 packet
[2021-12-31 10:47] LABS: Absolute Neutrophil Ct (ANC) 3.48 (1.4-6.9); Basophil (Absolute #) 0.02 (0-0.4); Eosinophil % 3.1 % (0.00-5.0); Eosinophil (Absolute #) 0.19 (0-0.5); Hematocrit 38.8 % (35-47); Hemoglobin 12.9 gm/dl (12.0-16.0); Lymphocyte (Absolute #) 1.91 (1.0-4.6); Lymphocytes % 31.5 % (24.0-44.0); Mean Corpuscular Hemoglobin 31.9 pg (26-32); Mean Corpuscular Hgb Concent. 33.2 g/dl (32-36); Mean Platelet Volume 11.3 fl (7.5-11.0); Monocyte (Absolute #) 0.47 (0.0-1.3); Monocytes % 7.7 % (0.0-12.0); Neutrophil % 57.4 % (36.0-66.0); Platelet Count 226 K/mm3 (150-450); Red Blood Count 4.04 M/mm3 (4.1-5.4); Red Cell Distribution Width 11.8 % (11.5-14.0); White Blood Count 6.1 K/mm3 (4.0-10.5)
[2021-12-31 11:17] VITALS: BP 154/89
[2021-12-31 11:17] LABS: ALBUMIN 4.3 g/dL (3.5-5.0); ANION GAP 15.9 MEQ/L (5-15); BILIRUBIN,TOTAL 0.5 mg/dL (0.2-1.3); Calcium 9.7 mg/dL (8.4-10.2); Creatinine 1 1.16 mg/dL (0.52-1.04); EST GLOMERULAR FILTRATION RATE 47.2 ML/MIN; Potassium 3.7 mmol/L (3.5-5.1); Total Protein 7.9 g/dL (6.3-8.2)
[2021-12-31] MEDS ORDERED: PULMICORT 0.5 MG/2 ML RESPULES IH ONE (11:25)
[2021-12-31] MEDS ORDERED: Rocephin 1000 MG INJ IM ONE (11:27)
[2021-12-31] MEDS ORDERED: Rocephin 1000 MG INJ ONE (11:34)
[2021-12-31] MEDS ORDERED: XYLOCAINE 1% HCL 20 ML MDV ONE (11:34)
[2021-12-31 11:50] VITALS: PULSE 74; O2SAT 98
--- NOTE | 2021-12-31 20:01 | XRAY ---
Indication: Nonproductive cough 1 week. Comparison: January 17, 2010. PA/lateral chest again demonstrates minimal left base subsegmental atelectasis/scarring. No focal infiltrate, consolidation, or large effusion. Heart not enlarged. Enlarging large hiatal hernia with now partial intrathoracic stomach. Bony thorax intact again with mild degenerative changes. Impression: Continued nonacute chest with chronic features.
== END 2021-12-31 12:06 | disposition home or self-care (01) ==
LOC: ED 10:13
DX: J20.9 Acute bronchitis, unspecified (principal); R06.00 Dyspnea, unspecified; R07.89 Other chest pain; E78.5 Hyperlipidemia, unspecified; I10 Essential (primary) hypertension; K21.9 Gastro-esophageal reflux disease without esophagitis; Z79.52 Long term (current) use of systemic steroids; Z79.899 Other long term (current) drug therapy
CPT/HCPCS: 36000; 36415; 71046; 80053; 83880; 84484; 85025; 85379; 93005; 93041; 94640; 94667; 96372; 99284; J0696

== ENCOUNTER 2022-08-25 15:15 | Emergency (ER) | payer MEDICARE, OTHER ==
--- NOTE | 2022-08-25 15:20 | ERPHSYRPT ---
- History of Present Illness Time Seen by Provider: 08/25/22 15:20 Source: patient, family Exam Limitations: no limitations Physician History: This is an 87-year-old white female patient who presents to the emergency department with right ankle pain and swelling. It is in the lateral aspect of her right ankle. Patient was sitting in her chair and she felt some numbness in the right ankle and when she got up there was pain and swelling present. She does not recall falling or injuring her ankle at any time. She has no calf pain she has no shortness of breath. She has no cough. She wanted to be evaluated to be sure she did or did not have an ankle fracture. Method of Injury: other (No specific injury) Quality: aching Severity of Pain-Max: mild Severity of Pain-Current: mild Lower Extremities Pain: ankle: right Modifying Factors: Improves With: movement Associated Symptoms: other (Mild pain with ambulating but can bear weight) Allergies/Adverse Reactions: celecoxib Allergy (Verified 12/31/21 10:39) rash vaccine adjuvant system, AS01B liposomal [From Shingrix (PF)] Allergy (Verified 12/31/21 10:39) varicella-zoster virus glycoprotein E, recombinant [From Shingrix (PF)] Allergy (Verified 12/31/21 10:39) levofloxacin [From Levaquin] Adverse Reaction (Verified 12/31/21 10:39) sore joints rash Home Medications: Levothyroxine Sodium [Synthroid] 75 mcg PO DAILY 07/21/14 [History] Omeprazole [Prilosec] 20 mg PO DAILY 07/21/14 [History] Simvastatin [Zocor] 20 mg PO QHS 07/21/14 [History] hydroCHLOROthiazide [Hydrochlorothiazide] 25 mg PO DAILY 07/21/14 [History] Ergocalciferol (Vitamin D2) [Vitamin D] 50,000 unit PO WEEKLY 11/25/16 [History] Cyanocobalamin (Vitamin B-12) [Vitamin B12] 1,000 mcg PO DAILY 05/23/21 [History] Fexofenadine HCl [Sammie] 180 mg PO DAILY PRN PRN 05/23/21 [History] Gabapentin [Neurontin ] 300 mg PO DAILY 05/23/21 [History] L.acidoph,Paracasei, B.lactis [Probiotic] 1 each PO DAILY 05/23/21 [History] Meclizine HCl 12.5 mg PO DAILY PRN PRN 05/23/21 [History] Hx Tetanus, Diphtheria Vaccination/Date Given: No Hx Influenza Vaccination/Date Given: No Hx Pneumococcal Vaccination/Date Given: Yes (2015) Travel Risk - International Travel Have you traveled outside of the country in past 3 weeks: No - Coronavirus Screening Are you exhibiting any of the following symptoms?: No Close contact with a COVID-19 positive Pt in past 14-21 Days: No - Vaccine Status Have you recieved a Covid-19 vaccination: Yes 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: [employer] - Vaccination Dates Date of 2cond Vaccination (if applicable): 01/2021 - Review of Systems Constitutional: No Symptoms Eyes: No Symptoms Ears, Nose, & Throat: No Symptoms Respiratory: No Symptoms Cardiac: No Symptoms Abdominal/Gastrointestinal: No Symptoms Genitourinary Symptoms: No Symptoms Musculoskeletal: No Symptoms, Injury, Joint Pain (Right ankle lateral aspect) Skin: No Symptoms Neurological: No Symptoms Psychological: No Symptoms Endocrine: No Symptoms Hematologic/Lymphatic: No Symptoms Immunological/Allergic: No Symptoms All Other Systems: Reviewed and Negative - Past Medical History Pertinent Past Medical History: Yes Neurological History: No Pertinent History ENT History: Cataracts Cardiac History: High Cholesterol, Hypertension Respiratory History: No Pertinent History Endocrine Medical History: Hypothyroidism Musculoskeletal History: Arthritis GI Medical History: GERD History: No Pertinent History Psycho-Social History: No Pertinent History Female Reproductive Disorders: No Pertinent History Other Medical History: vertigo - Past Surgical History Past Surgical History: Yes Neuro Surgical History: No Pertinent History Cardiac: No Pertinent History Respiratory: No Pertinent History Gastrointestinal: Appendectomy, Cholecystectomy Genitourinary: No Pertinent History Musculoskeletal: No Pertinent History Female Surgical History: No Pertinent History 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 - Social History Smoking Status: Never smoker Exposure to second hand smoke: No Drug Use: none Patient Lives Alone: Yes - Nursing Vital Signs Nursing Vital Signs: Initial Vital Signs Temperature 98.0 F 08/25/22 15:20 Pulse Rate 88 08/25/22 15:20 Respiratory Rate 20 08/25/22 15:20 Blood Pressure 147/82 08/25/22 15:20 O2 Sat by Pulse Oximetry 95 08/25/22 15:20 Pain Scale Pain Intensity 2 - Physical Exam General Appearance: no apparent distress, alert, anxiety Eyes, Ears, Nose, Throat Exam: normal ENT inspection, moist mucous membranes Neck Exam: normal inspection, non-tender, supple, full range of motion Cardiovascular/Respiratory Exam: chest non-tender, no respiratory distress Gastrointestinal/Abdominal Exam: non-tender Back Exam: normal inspection, normal range of motion, No CVA tenderness, No vertebral tenderness Hips Exam: bilateral: non-tender, normal inspection, normal range of motion, no evidence of injury Legs Exam: bilateral leg: non-tender, normal inspection, normal range of motion Knees Exam: bilateral knee: non-tender, normal inspection, normal range of motion, no evidence of injury Ankle Exam: right ankle: soft tissue tenderness (Lateral malleolar region), swelling (Lateral malleolar region), left ankle: non-tender, normal inspection, no evidence of injury, bilateral ankle: normal range of motion Foot Exam: bilateral foot: non-tender, normal inspection, normal range of motion, no evidence of injury Neuro/Tendon Exam: normal sensation, normal motor functions, normal tendon functions, no evidence tendon injury Mental Status Exam: alert, oriented x 3, cooperative Skin Exam: normal color, warm, dry SpO2 Interpretation: normal O2 Delivery: Room Air - Course Nursing assessment & vital signs reviewed: Yes Ordered Tests: Active Orders 24 hr Category Date Time Status Pascual Bandage Application -[facility] STAT Care 08/25/22 16:05 Ordered ANKLE (3 VIEWS) Stat Exams 08/25/22 15:26 Taken - Progress Progress: improved, pain not gone completely Progress Note: 08/25/22 16:06 X-ray right ankle shows no acute fracture or dislocation. Counseled pt/family regarding: diagnosis, need for follow-up, rad results - Departure Departure Disposition: Home Clinical Impression: Right ankle swelling Condition: Stable Critical Care Time: No Referrals: JAIRO EDMONDSON MD [Primary Care Provider] - Follow up/PCP as directed Additional Instructions: Ice pack to area 3 times a day for the next 48 hours. Wear the Pascual wraps for compression and comfort. Keep your right lower extremity above the level of your heart when not ambulating. Weightbearing as tolerated. Follow-up with Dr. Izaguirre (podiatry) or [facility] orthopedic walk-in clinic Saturday through Saturday 8am to 10am if symptoms persist or worsen.
[2022-08-25 16:12] VITALS: BP 141/89; PULSE 72; O2SAT 96
--- NOTE | 2022-08-25 20:37 | XRAY ---
Indication: Pain and swelling. Comparison: None 3 view right ankle demonstrates mild osteopenia, tiny medial malleolus spurring, tiny lateral malleolus tip heterotopic ossification, and mild scattered vascular calcifications. No other bony, articular, or soft tissue abnormalities.
== END 2022-08-25 16:19 | disposition home or self-care (01) ==
LOC: ED 15:15
DX: M25.471 Effusion, right ankle (principal); M25.571 Pain in right ankle and joints of right foot; E78.5 Hyperlipidemia, unspecified; I10 Essential (primary) hypertension; Z79.899 Other long term (current) drug therapy
CPT/HCPCS: 73610; 99283

== ENCOUNTER 2025-03-03 09:31 | Day surgery (SDC) | payer MEDICARE, OTHER ==
[2025-03-03] MEDS ORDERED: LIDOCAINE HCL 2% 100 MG/5 ML IJ ONE (09:32)
[2025-03-03] MEDS ORDERED: Depo-Medrol 40 MG/ML IM ONE (09:32)
[2025-03-03] MEDS ORDERED: propofoL IV ONE (12:00)
[2025-03-03] MEDS ORDERED: Lactated Ringers 1,000 ML IV ONE (12:18)
--- NOTE | 2025-03-03 14:13 | XRAY ---
Indication: Bilateral L4-S1 MBB. Intraoperative fluoroscopy provided for 16 seconds. Single digital spot image submitted for interpretation demonstrates posterior needle tips projecting over expected left and right L4-S1 nerve roots. Correlate with intraoperative findings/report.
--- NOTE | 2025-03-03 15:05 | XRAY ---
16 seconds of fluoroscopy was used in surgery for a bilateral L4-S1 MBB.
== END 2025-03-03 12:36 | disposition home or self-care (01) ==
LOC: SDC-PAIN 09:31
PROVIDERS: ATTEND Psychiatry & Neurology Pain Medicine
DX: M47.817 Spondylosis without myelopathy or radiculopathy, lumbosacral region (principal)
CPT/HCPCS: 64493; 64494; 72020; J2704

== ENCOUNTER 2025-05-26 09:52 | Day surgery (SDC) | payer MEDICARE, OTHER ==
[2025-05-26] MEDS ORDERED: BUPIVACAINE 0.5% VIAL IJ ONE (09:53)
[2025-05-26] MEDS ORDERED: LIDOCAINE HCL 1% 50 MG/5 ML VL IJ ONE (09:53)
[2025-05-26] MEDS ORDERED: Depo-Medrol 40 MG/ML IM ONE (09:53)
[2025-05-26] MEDS ORDERED: propofoL IV ONE (13:17)
--- NOTE | 2025-05-26 14:09 | XRAY ---
17 seconds of fluoroscopy was used in surgery for a left L4-S1 RFA.
--- NOTE | 2025-05-26 14:09 | XRAY ---
Indication: Left L4-S1 RFA. Intraoperative fluoroscopy provided for 17 seconds. 4 digital spot image submitted for interpretation demonstrates posterior needle tips projecting over expected left L4-S1 nerve roots. Correlate with intraoperative findings/report.
[2025-05-26] MEDS ORDERED: Lactated Ringers 1,000 ML IV ONE (16:24)
== END 2025-05-26 13:54 | disposition home or self-care (01) ==
LOC: SDC-PAIN 09:52
PROVIDERS: ATTEND Psychiatry & Neurology Pain Medicine
DX: M47.817 Spondylosis without myelopathy or radiculopathy, lumbosacral region (principal)

== ENCOUNTER 2025-06-02 10:42 | Day surgery (SDC) | payer MEDICARE, OTHER ==
[2025-06-02] MEDS ORDERED: Depo-Medrol 40 MG/ML IM ONE (10:43)
[2025-06-02] MEDS ORDERED: Marcaine Mpf 0.5% Vial 30 Ml IJ ONE (10:43)
[2025-06-02] MEDS ORDERED: XYLOCAINE 1% HCL 20 ML MDV IJ ONE (10:43)
[2025-06-02] MEDS ORDERED: propofoL IV ONE (12:51)
[2025-06-02] MEDS ORDERED: Lactated Ringers 1,000 ML IV ONE (13:02)
--- NOTE | 2025-06-02 13:24 | XRAY ---
Indication: Right L4-S1 RFA. Intraoperative fluoroscopy provided for 13 seconds. 4 digital spot images submitted for interpretation demonstrates posterior needle tips projecting over expected right L4-S1 nerve roots. Correlate with intraoperative findings/report.
--- NOTE | 2025-06-02 13:34 | XRAY ---
13 seconds of fluoroscopy was used in surgery for a right L4-S1 RFA.
== END 2025-06-02 13:25 | disposition home or self-care (01) ==
LOC: SDC-PAIN 10:42
PROVIDERS: ATTEND Psychiatry & Neurology Pain Medicine
DX: M47.817 Spondylosis without myelopathy or radiculopathy, lumbosacral region (principal)